=== PATIENT | female | born 1975 | race Caucasian/White ===

== ENCOUNTER 2020-07-02 08:27 | Day surgery (SDC) | payer BC ==
[~2020-07-02 08:27] MED LIST: Midazolam 1 MG/ML 2 ML SDV ONE; Propofol 200 MG/20 ML SDV ONE; fentaNYL 100 MCG/2 ML SDV ONE
[2020-07-02] MEDS ORDERED: Dextrose 5%-Lactated Ringers 1,000 ML IV SCH (09:00)
[2020-07-02] MEDS ORDERED: Glycopyrrolate 0.2 MG/ML 2 ML SDV IVPUSH ONE (09:30)
--- NOTE | 2020-07-09 10:07 | OR ---
DATE OF PROCEDURE: 07/02/2020 SURGEON: Rubens Boyd MD PREOPERATIVE DIAGNOSIS: Weight regain status post Fany-en-Y gastric bypass. 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 OPERATIVE PROCEDURE: Upper gastrointestinal endoscopy with biopsies of gastric pouch for CLOtest. ANESTHESIA: IV sedation. INDICATION FOR PROCEDURE: A 44-year-old status post Fany-en-Y gastric bypass done in [place], [place], in 2002. Preoperatively, the patient weighed 370 pounds. She did get postoperatively down into the range of 235 pounds. Within the past several years, has had progressive problems with weight regain and presently has now a weight of 345 pounds. Due to investigate the possible corrective actions, the plan is to proceed with an upper GI endoscopy with biopsies as indicated. Potential risks including bleeding and perforation were discussed, and the patient wishes to proceed. DETAILS OF PROCEDURE: The patient was taken to the operating room and placed in a left lateral decubitus position. IV sedation was administered, after which the upper GI endoscope was passed orally through the length of the esophagus, entered the gastric pouch, from there through the gastrojejunostomy roughly 20 cm into the Fany limb. The findings included a normal-appearing esophagus in the EG junction area. The patient had a very large gastric pouch measuring 10 cm from this gastrojejunostomy to the esophagogastric junction. It was associated with quite a bit in the way of dilation of the gastrojejunostomy as well. Most importantly, the patient had an obvious gastrogastric fistula between the left side of the gastric pouch into the remainder of the stomach, which was associated with quite a bit in the way of bile retention within the gastric pouch. The scope was then withdrawn and biopsies of the antrum and pouch were sent for CLOtest for H pylori. Minimal bleeding from the biopsy site was seen and the procedure then concluded. The patient would appear to be a candidate for revisional procedure given initial results and the development of a gastrogastric fistula with a large pouch and gastrojejunostomy all of which essentially limited any restriction in terms of her gastric bypass anatomy. We will send today request to her insurance company regarding a revisional procedure. This would need to be done as an open procedure as the patient's previous surgery was done with a Fany limb brought through a retrocolic retrogastric approach. Rubens Boyd MD /[id number]
== END 2020-07-02 11:16 | disposition home or self-care (01) ==
LOC: JP.SDS 08:27
PROVIDERS: ATTEND Surgery
DX: K31.6 Fistula of stomach and duodenum (principal); E66.01 Morbid (severe) obesity due to excess calories; K90.9 Intestinal malabsorption, unspecified; Z68.43 Body mass index [BMI] 50.0-59.9, adult; Z98.84 Bariatric surgery status; Z98.0 Intestinal bypass and anastomosis status; Z79.899 Other long term (current) drug therapy
CPT/HCPCS: 44386; 81025; 87081; J2250; J2704; J3010; J3490; J7121